=== PATIENT | female | born 1955 | race Caucasian/White ===

== ENCOUNTER 2020-08-11 17:02 | Emergency (ER) | payer BC ==
--- NOTE | 2020-08-11 18:20 | EDM.PDOC ---
ED HPI GENERAL MEDICAL PROBLEM - General Chief Complaint: General Stated Complaint: NO INSULIN Time Seen by Provider: 08/11/20 18:14 Source of Information: Reports: Patient History Limitations: Reports: No Limitations - History of Present Illness INITIAL COMMENTS - FREE TEXT/NARRATIVE: Natty is a 64 year-old female presenting to the ED for request for refill of her insulin. Patient is not from the area but had to come up because her father was being hospitalized here. Her father is subsequently and she has to stay now for arrangements, however, she did not bring enough insulin up to cover this. Of time and is currently out of her dosing. We did contact [facility] and they are not able to refill her prescription without a new prescription. She is here for that purpose. She denies any significant symptoms other than hyperglycemia due to the lack of her insulin. - Related Data Allergies Allergy/AdvReac Type Severity Reaction Status Date / Time acetaminophen [From Lortab] Allergy Cannot Verified 08/11/20 18:09 Remember clindamycin Allergy Rash Verified 08/11/20 18:09 hydrocodone [From Lortab] Allergy Cannot Verified 08/11/20 18:09 Remember pioglitazone [From Actos] Allergy Edema Verified 08/11/20 18:07 ED ROS GENERAL - Review of Systems Review Of Systems: See Below Constitutional: Reports: No Symptoms HEENT: Reports: No Symptoms Respiratory: Reports: No Symptoms Cardiovascular: Reports: No Symptoms Endocrine: Reports: No Symptoms GI/Abdominal: Reports: No Symptoms : Reports: No Symptoms Musculoskeletal: Reports: No Symptoms Skin: Reports: No Symptoms Neurological: Reports: No Symptoms Psychiatric: Reports: No Symptoms Hematologic/Lymphatic: Reports: No Symptoms Immunologic: Reports: No Symptoms ED EXAM, GENERAL - Physical Exam Exam: See Below Exam Limited By: No Limitations General Appearance: Alert, No Apparent Distress Head: Atraumatic, Normocephalic Neck: Normal Inspection Respiratory/Chest: No Respiratory Distress, Lungs Clear, Normal Breath Sounds Cardiovascular: Normal Peripheral Pulses, Regular Rate, Rhythm, No Murmur Neurological: Alert, Oriented, Normal Cognition, No Motor/Sensory Deficits Course - Re-Assessments/Exams Free Text/Narrative Re-Assessment/Exam: 08/11/20 18:19 insulin prescription refilled for Basaglar KwikPen 100 units/mL with a total of 3 pens ordered no refills. Departure - Departure Time of Disposition: 18:25 Disposition: Home, Self-Care 01 Clinical Impression: Medication refill - Discharge Information Referrals: PCP,None [Primary Care Provider] - Care Plan Goals: Follow-up with your primary care provider as needed. I am sorry to hear of the loss of your father. You are free to return if we can help you in any way. - Problem List & Annotations (1) Medication refill SNOMED Code(s): 616911080, [id number], [id number] Code(s): Z76.0 - ENCOUNTER FOR ISSUE OF REPEAT PRESCRIPTION Status: Acute Priority: Low Current Visit: Yes - Problem List Review Problem List Initiated/Reviewed/Updated: Yes
[2020-08-11] MEDS ORDERED: Insulin Glargine,Human Rec. Analog 100 Units/ML 3 ML Pen SUBCUT STA (18:25)
[2020-08-11] MEDS ORDERED: Glucagon,Human Recombinant 1 MG Vial IM PRN (18:25)
[2020-08-11] MEDS ORDERED: 50% Dextrose in Water 50 ML Syringe IVPUSH PRN (18:25)
== END 2020-08-11 18:54 | disposition home or self-care (01) ==
LOC: JP.ED 17:02
DX: R73.9 Hyperglycemia, unspecified (principal); Z76.0 Encounter for issue of repeat prescription; Z88.5 Allergy status to narcotic agent; Z88.1 Allergy status to other antibiotic agents; Z88.8 Allergy status to other drugs, medicaments and biological substances
CPT/HCPCS: 99281; 99282; J1815